=== PATIENT | female | born 1990 ===

== ENCOUNTER 2017-03-14 11:02 | Emergency (ER) | payer MEDICAID ==
[2017-03-14 11:43] VITALS: BMI 25.7
[2017-03-14 11:47] VITALS: RESP 18; TEMP 98.2; O2SAT 99
--- NOTE | 2017-03-14 12:42 | ED PDOC ---
Addendum entered and electronically signed by Maricruz Patterson DO 03/14/17 15:13: Review Of Systems Except As Marked, All Systems Reviewed And Found Negative. Constitutional: Positive for: Other (patient denies fever, chills, sweats) Eyes: Positive for: Other (patient denies eye pain, vision changes, redness of the eyes) ENT: Positive for: Other (patient denies sore throat, ear pain, difficulty hearing) Cardiovascular: Positive for: Other (patient denies chest pain, palpiations, orthopnea) Respiratory: Positive for: Other (patient denies difficulty breathing, SOB with exacerbation, wheezing, cough) Gastrointestinal: Positive for: Nausea, Abdominal Pain, Other (denies hematochezia, diarrhea) Genitourinary: Positive for: Vaginal Discharge (brown), Pelvic Pain (suprapubic and pelvic pain), Other (patient denies dysuria) Musculoskeletal: Positive for: Other (patient denies any msk pain) Skin: Positive for: Other (patient denies rashes, lesions, jaundice) Physical Exam - Physical Exam Appears: Non-toxic, No Acute Distress Skin: Normal Color, Warm, Dry Head: Atraumatic, Normacephalic Eye(s): bilateral: Normal Inspection, PERRL, EOMI Nose: Normal Oral Mucosa: Moist Tongue: Normal Appearing Lips: Normal Appearing Throat: Normal, Other (denies erythema) Neck: Normal, Normal ROM Gastrointestinal/Abdominal: Bowel Sounds, Soft, Tenderness (midepigastric and suprapubic), Guarding (suprapubic) Pelvic: Other (declined pelvic exam at this time. will follow up with vice president of manufacturing) Extremity: Normal ROM, Other (no swelling, pedal edema) Pulses: Left Carotid: Normal, Right Carotid: Normal, Left Femoral: Normal, Right Femoral: Normal, Left Dorsalis Pedis: Normal, Right Dorsalis Pedis: Normal Neurological/Psych: Oriented x3, Normal Speech, Normal Cognition, Normal Motor, Normal Sensation, Normal Reflexes Extremity: Upper: No Drift, Lower: No Drift Original Note: Arrival/HPI - General Historian: Patient - General Chief Complaint: Female Genitourinary Time Seen by Provider: 03/14/17 11:19 - History of Present Illness Narrative History of Present Illness (Text): 03/14/17 12:27 26 F presents with Right sided pelvic pain and suprapubic pain for the past day. Patient has been feeling nauseas for 10 days. Patient states at times she feels that food gets stuck and doesn't digest well. Patient states she has bowel movements every day. Patient states her right pelvic and suprapubic pain started today and has noticed brown discharge in her pad and in the toilet bowl after urination. Patient was taking depo shots until her LMP February 24, 2017. Patient switched to regular OCPs three days later. Patient admitted to unprotected sex with a monogamous partner for about five months. Patient states her OBGYN told her to come to the ER to get a serum HCG test. PMH: vaginal delivery 2012, no other past medical history PSH: "Tummy tuck" after to her son (surgery 2013) Allergies: Penicillin 03/14/17 13:56 03/14/17 13:56 03/14/17 14:39 (Maricruz Patterson) Past Medical History - Infectious Disease Hx of Infectious Diseases: None - Psychiatric Hx Substance Use: No - Anesthesia Hx Anesthesia: No Family/Social History - Physician Review Nursing Documentation Reviewed: Yes Family/Social History: Unknown Family HX Smoking Status: Never Smoked Hx Alcohol Use: No Hx Substance Use: No Allergies/Home Meds Allergies/Adverse Reactions: Allergies Penicillins Allergy (Verified 03/14/17 11:43) RASH Vital Signs Temp Pulse Resp BP Pulse Ox 03/14/17 14:20 79 18 106/69 99 03/14/17 13:37 84 18 110/71 99 03/14/17 11:47 98.2 F 90 18 108/75 99 Medical Decision Making - Lab Interpretations I have reviewed the lab results: Yes Interpretation: Abnormal lab values (UA positive for UTI) - RAD Interpretation Numerical Control Tool Programmer: Radiologist ED Course and Treatment: 03/14/17 14:37 Urinalysis, Culture CBC CMP, Mag, Phos transvaginal US (Maricruz Patterson) 03/14/17 15:25 eduard zhou examined pt as well and minimal epigastric and suprapubic discomfort. no other tenderness noted. pt notified of lab urine findings. pt notified on us findings and will fu with principal data architect to ensure no complications/ cancer development. 03/14/17 15:27 (Armani Zhou) - Lab Interpretations Narrative Lab Interpretation (Text): 03/14/17 14:38 2.6 cm simple cyst in left ovary. normal appearance of uterus and endometrium. small amount of free fluid in pelvis, physiologic (Eng,Maricruz) Lab Results: 03/14/17 13:00 03/14/17 13:00 Lab Results 03/14/17 13:00: Urine Color Yellow, Urine Appearance Turbid, Urine pH 7.0, Ur Specific [place] 1.015, Urine Protein 30 H, Urine Glucose (UA) Negative, Urine Ketones Negative, Urine Blood Large H, Urine Nitrate Positive H, Urine Bilirubin Negative, Urine Urobilinogen 0.2, Ur Leukocyte Esterase Small H, Urine RBC 25 - 30, Urine WBC 1 - 3, Ur Epithelial Cells 4 - 5, Urine Bacteria Many 03/14/17 13:00: Sodium 134, Potassium 4.1, Chloride 104, Carbon Dioxide 23, Anion Gap 11, BUN 8, Creatinine 0.6 L, Est GFR ( Amer) > 60, Est GFR (Non -Af Amer) > 60, Random Glucose 88, Calcium 9.3, Phosphorus 3.0, Magnesium 1.9, Total Bilirubin 0.3, AST 26, ALT 25, Alkaline Phosphatase 110, Total Protein 7.5 , Albumin 3.9, Globulin 3.5, Albumin/Globulin Ratio 1.1 03/14/17 13:00: WBC 6.7, RBC 4.27, Hgb 11.8 L, Hct 35.3 L, MCV 82.7, MCH 27.6, MCHC 33.4, RDW 13.6, Plt Count 279, MPV 11.7 H, Gran % 63.1, Lymph % (Auto) 28.4 , [place] % (Auto) 7.0 H, Eos % (Auto) 1.2 L, Baso % (Auto) 0.3, Gran # 4.21, Lymph # 1.9, [place] # 0.5, Eos # 0.1, Baso # 0.02 - RAD Interpretation Radiology Orders: 03/14/17 12:21 TRANSVAGINAL [US] Urgent - Medication Orders Current Medication Orders: Discontinued Medications Ibuprofen (Motrin Tab) 800 mg PO STAT STA Stop: 03/14/17 12:21 Last Admin: 03/14/17 12:52 Dose: 800 mg Ondansetron HCl (Zofran Odt) 8 mg PO STAT STA Stop: 03/14/17 12:21 Last Admin: 03/14/17 12:53 Dose: Disposition/Present on Arrival - Present on Arrival Any Indicators Present on Arrival: No History of DVT/PE: No History of Uncontrolled Diabetes: No Urinary Catheter: No History of Decub. Ulcer: No History Surgical Site Infection Following: None - Disposition Have Diagnosis and Disposition been Completed?: Yes Disposition Time: 15:00 Patient Plan: Discharge - Disposition Diagnosis: UTI (urinary tract infection) Disposition: HOME/ ROUTINE Patient Problems: Current Active Problems Problem Status Onset UTI (urinary tract infection) Acute Condition: FAIR Print Language: NORWEGIAN Additional Instructions: follow up with primary care doctor for re-evaluation of discharge, abdominal pain, difficulty with eating. Return to ED if fever, chills, extreme abdominal pain, nausea, vomiting, diarrhea Prescriptions: Nitrofurantoin Macrocrystals [Macrobid] 100 mg PO BID #20 cap Ondansetron [Zofran Odt] 8 mg PO Q6H PRN #20 tab.rapdis PRN Reason: Nausea/Vomiting Phenazopyridine [Phenazopyridine HCl] 100 mg PO TID #6 tab Referrals: Justo Chaudhary MD [Primary Care Provider] - Follow up with primary Forms: [employer] (Macedonian)
[2017-03-14 13:11] LABS: BASO # 0.02 K/mm3 (0.0-2.0); BASO % 0.3 % (0.0-3.0); EOS # 0.1 (0.0-0.7); EOS % 1.2 % (1.5-5.0); GRAN # 4.21 (1.4-6.5); GRAN % 63.1 % (50.0-68.0); HEMOGLOBIN 11.8 g/dL (12.0-16.0); LYMPH # 1.9 (1.2-3.4); LYMPH % 28.4 % (22.0-35.0); MEAN CELL VOLUME 82.7 fl (80.0-105.0); MEAN CORPUSCULAR HEMOGLOBIN 27.6 pg (25.0-35.0); MEAN CORPUSCULAR HGB CONC 33.4 g/dl (31.0-37.0); MEAN PLATELET VOLUME 11.7 fl (7.0-11.0); MONO # 0.5 (0.1-0.6); RBC 4.27 10^6/uL (3.5-6.1); RED CELL DISTRIBUTION WIDTH 13.6 % (11.5-14.5); WHITE BLOOD COUNT 6.7 10^3/ul (4.5-11.0)
[2017-03-14 13:23] LABS: URINE BILIRUBIN NEGATIVE (NEGATIVE); URINE BLOOD LARGE (NEGATIVE); URINE GLUCOSE (UA) NEGATIVE (NEGATIVE); URINE LEUKOCYTE ESTERASE SMALL Leu/uL (NEGATIVE); URINE NITRATE POSITIVE (NEGATIVE); URINE PROTEIN 30 mg/dL (<30 mg/dL); URINE UROBILINOGEN 0.2 E.U./dL (<1 E.U./dL)
[2017-03-14 13:27] LABS: URINE APPEARANCE TURBID (CLEAR); URINE COLOR YELLOW (YELLOW)
[2017-03-14 13:34] LABS: URINE RBC 25 - 30 /hpf (0-2)
[2017-03-14 13:35] LABS: URINE BACTERIA MANY (NEG)
[2017-03-14 13:44] LABS: ALB/GLOB RATIO 1.1 (1.1-1.8); ALBUMIN 3.9 g/dL (3.0-4.8); ALT/SGPT 25 U/L (7-56); AST/SGOT 26 U/L (14-36); BLOOD UREA NITROGEN 8 mg/dL (7-21); CALCIUM 9.3 mg/dL (8.4-10.5); GFR AFRICAN-AMERICAN > 60; GFR NON-AFRICAN AMERICAN > 60; MAGNESIUM 1.9 mg/dL (1.7-2.2)
--- NOTE | 2017-03-14 14:16 | US ---
HISTORY: RLQ pain, history of ovarian cyst COMPARISON: None available. TECHNIQUE: Transvaginal pelvic ultrasound was performed. FINDINGS: UTERUS: Measures 8.1 x 4.4 x 5.4 cm. Retroverted, normal in size and appearance. No fibroid or other mass lesion seen. ENDOMETRIUM: Measures 4.2 mm in diameter. Within normal limits. CERVIX: No cervical abnormality identified. RIGHT OVARY: Measures 3.6 x 2.0 x 3.5 cm. No solid mass. Normal flow. LEFT OVARY: Measures 3.5 x 2.7 x 4.0 cm. No solid mass. Normal flow. There is a 2.6 x 1.9 x 2.5 cm simple cyst. FREE FLUID: There is small amount of free fluid in the pelvis, likely physiologic. OTHER FINDINGS: None. IMPRESSION: 2.6 cm simple cyst in the left ovary. Normal appearance of the uterus and endometrium. Small amount of free fluid in the pelvis, likely physiologic.
[2017-03-14 14:21] VITALS: BP 106/69; PULSE 79
== END 2017-03-14 15:25 | disposition home or self-care (01) ==
LOC: ED 11:02
DX: N39.0 Urinary tract infection, site not specified (principal)

== ENCOUNTER 2017-03-16 12:48 | Emergency (ER) | payer MEDICAID ==
[2017-03-16 12:48] VITALS: BMI 25.7
[2017-03-16 13:13] VITALS: TEMP 98.2; O2SAT 98
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
--- NOTE | 2017-03-16 14:19 | RAD ---
PROCEDURE: Left hand radiographs Left wrist radiographs HISTORY: hand injury COMPARISON: None available. FINDINGS: BONES: Tachycardia nails material obscures evaluation of the 1st, 2nd, and 4th distal digits. No acute displaced fracture. JOINTS: No dislocation. SOFT TISSUES: Unremarkable. No evidence of radiopaque foreign body. OTHER FINDINGS: None. IMPRESSION: No acute displaced fracture, dislocation, or significant joint effusion identified. If symptoms persist, or if there is continued clinical concern, x-ray follow-up in 7-10 days should be considered.
[2017-03-16 14:50] VITALS: BP 110/80; PULSE 89; RESP 17
== END 2017-03-16 14:50 | disposition home or self-care (01) ==
LOC: ED 12:48
DX: S69.92XA Unspecified injury of left wrist, hand and finger(s), initial encounter (principal); Y04.0XXA Assault by unarmed brawl or fight, initial encounter; Y92.009 Unspecified place in unspecified non-institutional (private) residence as the place of occurrence of the external cause
CPT/HCPCS: 29130; 73110; 73130; 96372; 99284; J1885

== ENCOUNTER 2017-04-02 19:58 | Emergency (ER) | payer MEDICAID ==
[2017-04-02 19:58] VITALS: BMI 25.7
--- NOTE | 2017-04-02 20:08 | ED PDOC ---
Arrival/HPI - General Time Seen by Provider: 04/02/17 20:08 Historian: Patient - History of Present Illness Narrative History of Present Illness (Text): 04/02/17 20:08 26 y/o female, pmh including UTI and chronic headache, allergic to penicillin, c /o rt. sided headache x 2 days. Pt. stated that she has chronic rt. sided headache which started about 2 days ago, sharp and throbbing, no change in vision, no neck stiffness, no change in gait, no palpitation, no rash, no other medical or psychological complaints. Past Medical History - Provider Review Nursing Documentation Reviewed: Yes - Infectious Disease Hx of Infectious Diseases: None - Cardiac Hx Cardiac Disorders: No - Pulmonary Hx Respiratory Disorders: No - Neurological Hx Neurological Disorder: No - HEENT Hx HEENT Disorder: No - Renal Hx Renal Disorder: No - Endocrine/Metabolic Hx Endocrine Disorders: No - Hematological/Oncological Hx Blood Disorders: No - Integumentary Hx Dermatological Disorder: No - Musculoskeletal/Rheumatological Hx Musculoskeletal Disorders: No - Gastrointestinal Hx Gastrointestinal Disorders: No - Genitourinary/Gynecological Hx Genitourinary Disorders: Yes Hx Urinary Tract Infection: Yes - Psychiatric Hx Psychophysiologic Disorder: No Hx Substance Use: No - Anesthesia Hx Anesthesia: No Family/Social History - Physician Review Nursing Documentation Reviewed: Yes Family/Social History: Unknown Family HX Smoking Status: Never Smoked Hx Alcohol Use: No Hx Substance Use: No Allergies/Home Meds Allergies/Adverse Reactions: Allergies Penicillins Allergy (Verified 03/16/17 12:50) RASH Review of Systems - Review of Systems Constitutional: absent: Fatigue, Fevers Eyes: absent: Vision Changes ENT: absent: Hearing Changes Respiratory: absent: SOB, Cough Cardiovascular: absent: Chest Pain Gastrointestinal: absent: Abdominal Pain, Diarrhea, Nausea, Vomiting Musculoskeletal: absent: Arthralgias, Myalgias Skin: absent: Rash, Pruritis Neurological: Headache. absent: Dizziness Hemo/Lymphatic: absent: Adenopathy Psychiatric: absent: Anxiety, Depression Physical Exam Vital Signs Reviewed: Yes Vital Signs Temp Pulse Resp BP Pulse Ox 04/02/17 20:05 98.8 F 91 H 18 101/68 99 Temperature: Afebrile Blood Pressure: Normal Pulse: Regular Respiratory Rate: Normal Appearance: Positive for: Well-Appearing, Non-Toxic Pain Distress: Moderate Mental Status: Positive for: Alert and Oriented X 3 - Systems Exam Head: Present: Atraumatic, Normocephalic, Other (no temporal artery tenderness, no jaw claudication. ). No: Tenderness, Contusion, Swelling, Ecchymosis, Abrasion, Laceration Pupils: Present: PERRL Extroacular Muscles: Present: EOMI Conjunctiva: Present: Normal Ears: Present: NORMAL TM, Normal Canal. No: Erythema Mouth: Present: Moist Mucous Membranes Pharnyx: Present: Normal. No: ERYTHEMA, EXUDATE, TONSILS ENLARGED Nose (External): Present: Atraumatic. No: Abrasion, Contusion Nose (Internal): Present: Normal Inspection, No Active Bleeding. No: Rhinorrhea , Septal Hematoma, Epistaxis Neck: Present: Normal Range of Motion, Trachea Midline. No: Meningeal Signs, MIDLINE TENDERNESS, Paraspinal Tenderness, Lymphadenopathy Respiratory/Chest: Present: Clear to Auscultation, Good Air Exchange. No: Respiratory Distress, Accessory Muscle Use Cardiovascular: Present: Regular Rate and Rhythm, Normal S1, S2. No: Murmurs Abdomen: Present: Normal Bowel Sounds. No: Tenderness, Distention, Peritoneal Signs, Rebound, Guarding Back: Present: Normal Inspection. No: CVA Tenderness Upper Extremity: Present: Normal Inspection. No: Cyanosis, Edema Lower Extremity: Present: Normal Inspection. No: Edema Neurological: Present: GCS=15, CN II-XII Intact, Speech Normal, Motor Func Grossly Intact, Gait Normal, Memory Normal Skin: Present: Warm, Dry, Normal Color. No: Rashes Psychiatric: Present: Alert, Oriented x 3, Normal Insight, Normal Concentration Medical Decision Making ED Course and Treatment: 04/02/17 20:53 -labs/rapid flu -CT head -IVF/reglan/benadryl -Observe and reassess 04/02/17 23:16 -Urine hcg is negative -Rapid flu is negative -Labs are non-significant -CT head show no acute findings -Pt. feels completely relief and headache resolved, request to be discharged home. -Discharge home with naproxen, bedrest, follow up with your own pmd and neurologist within 2 days, return to the ER for any new or worsening signs or symptoms. - Lab Interpretations Lab Results: 04/02/17 21:31 04/02/17 21:31 Lab Results 04/02/17 21:31: Influenza Typ A,B (EIA) Negative for flu a/b 04/02/17 21:31: WBC 8.7 D, RBC 4.64, Hgb 13.0, Hct 38.3, MCV 82.5, MCH 28.0, MCHC 33.9, RDW 13.7, Plt Count 326, MPV 12.0 H, Gran % 56.8, Lymph % (Auto) 35.3 H, [place] % (Auto) 6.8 H, Eos % (Auto) 0.8 L, Baso % (Auto) 0.3, Gran # 4.93 , Lymph # (Auto) 3.1, [place] # (Auto) 0.6, Eos # (Auto) 0.1, Baso # (Auto) 0.03 04/02/17 21:31: Sodium 144, Potassium 4.1, Chloride 107, Carbon Dioxide 25, Anion Gap 16, BUN 10, Creatinine 0.7, Est GFR ( Amer) > 60, Est GFR (Non- Af Amer) > 60, Random Glucose 88, Calcium 9.8, Magnesium 2.1, Total Bilirubin 0.4, AST 25, ALT 23, Alkaline Phosphatase 134 H D, Total Protein 8.2, Albumin 4.3, Globulin 3.9, Albumin/Globulin Ratio 1.1 - RAD Interpretation Radiology Orders: 04/02/17 20:49 HEAD W/O CONTRAST [CT] Stat FINDINGS: Brain: Unremarkable. No hemorrhage. No significant white matter disease. No edema. Normal perry white matter interfaces are present. Ventricles: Unremarkable. No ventriculomegaly. Bones/joints: Unremarkable. No acute fracture. Soft tissues: Unremarkable. Sinuses: Unremarkable as visualized. No acute sinusitis. Mastoid air cells: Unremarkable as visualized. No mastoid effusion. IMPRESSION: Normal head/brain CT. Thank you for allowing us to participate in the care of your patient. Dictated and Authenticated by: Franky Vaughn MD 04/02/2017 11:12 PM Eastern Time ([place] & [place]) Drawing In Machine Tender Helper: Radiologist - Medication Orders Current Medication Orders: Discontinued Medications Diphenhydramine HCl (Benadryl) 50 mg IVP STAT STA Stop: 04/02/17 20:49 Last Admin: 04/02/17 21:15 Dose: 50 mg IVP Administration Document 02/07/18 21:15 JOL (Rec: 04/02/17 21:23 JOL [id number]) Charges for Administration # of IVP Administrations 1 Sodium Chloride (Sodium Chloride 0.9%) 1,000 mls @ 999 mls/hr IV .Q1H1M STA Stop: 04/02/17 21:48 Last Admin: 04/02/17 21:15 Dose: 999 mls/hr eMAR Start Stop Document 04/02/17 21:15 JOL (Rec: 04/02/17 21:25 JOL [id number]) Intravenous Solution Start Date 04/02/17 Start Time 21:15 End Date 04/02/17 End time 22:15 Total Infusion Time 60 Metoclopramide HCl (Reglan) 10 mg IVP STAT STA Stop: 04/02/17 20:49 Last Admin: 04/02/17 21:15 Dose: 10 mg IVP Administration Document 04/02/17 21:15 JOL (Rec: 04/02/17 21:24 JOL [id number]) Charges for Administration # of IVP Administrations 1 - PA / MECHANIC / Resident Statement / has reviewed & agrees with the documentation as recorded. Disposition/Present on Arrival - Present on Arrival Any Indicators Present on Arrival: No History of DVT/PE: No History of Uncontrolled Diabetes: No Urinary Catheter: No History of Decub. Ulcer: No History Surgical Site Infection Following: None - Disposition Have Diagnosis and Disposition been Completed?: Yes Diagnosis: Headache Disposition: HOME/ ROUTINE Disposition Time: 22:40 Patient Plan: Discharge Patient Problems: Current Active Problems Problem Status Onset Headache Acute Condition: IMPROVED Additional Instructions: -Discharge home with naproxen, bedrest, follow up with your own pmd and neurologist within 2 days, return to the ER for any new or worsening signs or symptoms. Prescriptions: Naproxen 500 mg PO BID PRN #20 tab PRN Reason: Other Referrals: PCP,NO [Primary Care Provider] - Follow up with primary Stone Kaur MD [Staff Provider] - Follow up with primary Forms: WORK NOTE
[2017-04-02 20:09] VITALS: RESP 18; TEMP 98.8
[2017-04-02] MEDS ORDERED: Sodium Chloride 0.9% 1,000 ML IV STA (20:48)
[2017-04-02] MEDS ORDERED: DiphenhydrAMINE 50 mg/ml Inj IVP STA (20:48)
[2017-04-02 21:38] LABS: BASO # 0.03 K/mm3 (0.0-2.0); BASO % 0.3 % (0.0-3.0); EOS # 0.1 (0.0-0.7); EOS % 0.8 % (1.5-5.0); GRAN # 4.93 (1.4-6.5); GRAN % 56.8 % (50.0-68.0); LYMPH # 3.1 (1.2-3.4); LYMPH % 35.3 % (22.0-35.0); MEAN CELL VOLUME 82.5 fl (80.0-105.0); MEAN CORPUSCULAR HGB CONC 33.9 g/dl (31.0-37.0); MONO # 0.6 (0.1-0.6); MONO % 6.8 % (1.0-6.0); RBC 4.64 10^6/uL (3.5-6.1); RED CELL DISTRIBUTION WIDTH 13.7 % (11.5-14.5); WHITE BLOOD COUNT 8.7 10^3/ul (4.5-11.0)
[2017-04-02 22:26] LABS: ALB/GLOB RATIO 1.1 (1.1-1.8); ALBUMIN 4.3 g/dL (3.0-4.8); ALT/SGPT 23 U/L (7-56); AST/SGOT 25 U/L (14-36); BLOOD UREA NITROGEN 10 mg/dL (7-21); CALCIUM 9.8 mg/dL (8.4-10.5); GFR AFRICAN-AMERICAN > 60; GFR NON-AFRICAN AMERICAN > 60; MAGNESIUM 2.1 mg/dL (1.7-2.2)
[2017-04-02 23:59] VITALS: O2SAT 100
[2017-04-03 00:04] VITALS: BP 110/67; PULSE 82
--- NOTE | 2017-04-03 08:07 | CT ---
PROCEDURE: CT HEAD WITHOUT CONTRAST. HISTORY: chronic rt. sided headache COMPARISON: None available. TECHNIQUE: Axial computed tomography images were obtained through the head/brain without intravenous contrast. Radiation dose: Total exam DLP = 812 mGy-cm. This CT exam was performed using one or more of the following dose reduction techniques: Automated exposure control, adjustment of the mA and/or kV according to patient size, and/or use of iterative reconstruction technique. FINDINGS: HEMORRHAGE: No intracranial hemorrhage. BRAIN: No mass effect or edema. No atrophy or chronic microvascular ischemic changes. VENTRICLES: Unremarkable. No hydrocephalus. CALVARIUM: Unremarkable. PARANASAL SINUSES: Unremarkable as visualized. No significant inflammatory changes. MASTOID AIR CELLS: Unremarkable as visualized. No inflammatory changes. OTHER FINDINGS: The report concurs with the preliminary [facility] report IMPRESSION: Normal CT of the Head.
== END 2017-04-02 23:50 | disposition home or self-care (01) ==
LOC: ED 19:58
DX: R51 Headache (principal)
CPT/HCPCS: 70450; 80053; 83735; 85025; 87804; 96361; 96374; 96375; 99285; J1200; J2765; J7040

== ENCOUNTER 2017-09-19 18:37 | Emergency (ER) | payer MEDICAID ==
[2017-09-19 18:59] VITALS: BMI 25.3
--- NOTE | 2017-09-19 19:27 | ED PDOC ---
Arrival/HPI - General Chief Complaint: Abnormal Labs Time Seen by Provider: 09/19/17 19:24 - History of Present Illness Narrative History of Present Illness (Text): 26 y/o F p/w L arm pain, swelling, erythema, and temperature of 101 at home last night s/p removing a contraceptive implant from the area 3 days ago. She denies motor weakness or numbness. She also notes that she recently has had general weakness, leg swelling and therefore went to her PMD and had blood work one which showed Alk Phos 158 and was given a prescription for an abdominal US. Denies chills, chest pain, dyspnea, nausea, vomiting, diarrhea, dysuria. Past Medical History - Infectious Disease Hx of Infectious Diseases: None - Cardiac Hx Cardiac Disorders: No - Pulmonary Hx Respiratory Disorders: Yes Hx Asthma: Yes - Neurological Hx Neurological Disorder: No - HEENT Hx HEENT Disorder: No - Renal Hx Renal Disorder: No - Endocrine/Metabolic Hx Endocrine Disorders: No - Hematological/Oncological Hx Blood Disorders: No - Integumentary Hx Dermatological Disorder: No - Musculoskeletal/Rheumatological Hx Musculoskeletal Disorders: No - Gastrointestinal Hx Gastrointestinal Disorders: No - Genitourinary/Gynecological Hx Genitourinary Disorders: Yes Hx Urinary Tract Infection: Yes - Psychiatric Hx Psychophysiologic Disorder: No Hx Substance Use: No - Anesthesia Hx Anesthesia: No Family/Social History Family/Social History: No Known Family HX Smoking Status: Never Smoked Hx Alcohol Use: No Hx Substance Use: No Allergies/Home Meds Allergies/Adverse Reactions: Allergies Penicillins Allergy (Verified 09/19/17 19:00) RASH Review of Systems - Physician Review All systems were reviewed & negative as marked: Yes - Review of Systems Respiratory: absent: SOB Cardiovascular: absent: Chest Pain Physical Exam - Physical Exam Narrative Physical Exam (Text): Constitutional: No acute distress. Head: Normocephalic. Atraumatic. Eyes: PERRL. ENT: Moist mucous membranes. Neck: Supple. Cardiovascular: Regular rate. Chest: No tenderness. Respiratory: Clear to auscultation bilaterally. GI: Soft. Nontender. Nondistended. Back: No CVA tenderness. Musculoskeletal: L upper arm with small incision without active drainage with surrounding induration, erthema, and tenderness. Skin: No rash. Neurologic: Alert, no focal deficit. Vital Signs Temp Pulse Resp BP Pulse Ox 09/19/17 19:00 98.8 F 98 H 16 113/76 97 Medical Decision Making ED Course and Treatment: Dr. Moore paged at 7:25pm. She recommends US abdomen and US doppler to rule out DVT. Agrees with doxycycline 1 dose IV here and discharge on same orally. States blood work not needed at this time since it was done this past week in office. US FINDINGS: Liver: Hepatic steatosis. No intrahepatic bile duct dilation. Gallbladder: Unremarkable. No gallstones. Common bile duct: Common bile measures up to 3 mm. No stones. No dilation. Pancreas: Unremarkable as visualized. Kidneys: Unremarkable. No stones. No solid mass. No hydronephrosis. Spleen: Unremarkable. No splenomegaly. Aorta: See below. Inferior vena cava: IVC and aorta not visualized. IMPRESSION: Hepatic steatosis. No evidence of cholelithiasis or gallbladder wall thickening. 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 - RAD Interpretation Radiology Orders: 09/19/17 19:28 ABDOMEN COMPLETE [US] Stat 09/19/17 19:33 DUPLEX UPPER EXTRM VEIN LEFT [US] Stat - Medication Orders Current Medication Orders: Discontinued Medications Doxycycline Hyclate 100 mg/ (Sodium Chloride) 100 mls @ 100 mls/hr IVPB STAT STA PRN Reason: Protocol Stop: 09/19/17 20:32 Disposition/Present on Arrival - Present on Arrival Any Indicators Present on Arrival: No History of DVT/PE: No History of Uncontrolled Diabetes: No Urinary Catheter: No History of Decub. Ulcer: No History Surgical Site Infection Following: None - Disposition Have Diagnosis and Disposition been Completed?: Yes Diagnosis: Cellulitis Disposition: HOME/ ROUTINE Disposition Time: 21:10 Patient Plan: Discharge Condition: STABLE Discharge Instructions (ExitCare): Cellulitis (ED) Additional Instructions: US FINDINGS: Liver: Hepatic steatosis. No intrahepatic bile duct dilation. Gallbladder: Unremarkable. No gallstones. Common bile duct: Common bile measures up to 3 mm. No stones. No dilation. Pancreas: Unremarkable as visualized. Kidneys: Unremarkable. No stones. No solid mass. No hydronephrosis. Spleen: Unremarkable. No splenomegaly. Aorta: See below. Inferior vena cava: IVC and aorta not visualized. IMPRESSION: Hepatic steatosis. No evidence of cholelithiasis or gallbladder wall thickening. Doppler negative for arm blood clot. Prescriptions: Doxycycline Monohydrate 100 mg PO BID #19 capsule Referrals: Iqra Moore MD [Staff Provider] - Follow up with primary Forms: [employer] (British)
[2017-09-19 22:08] VITALS: RESP 18; TEMP 98.5; O2SAT 99
[2017-09-19 22:29] VITALS: BP 118/70; PULSE 89
--- NOTE | 2017-09-20 09:15 | US ---
Date of service: 09/19/2017 HISTORY: Generalized weakness, leg swelling and elevated alkaline phosphatase COMPARISON: None. TECHNIQUE: Sonographic evaluation of the abdomen. FINDINGS: LIVER: Measures 13.1 cm. Hepatopedal blood flow. Fatty infiltration manifest ultrasonographically as increased echogenicity of the liver parenchyma. No mass. No intrahepatic bile duct dilatation. GALLBLADDER: Unremarkable. No gallstones. COMMON BILE DUCT: Measures 3.1 mm. No stones. No dilatation. PANCREAS: Unremarkable as visualized. No mass. No ductal dilatation. RIGHT KIDNEY: Measures 5.2 x 10.9cm. Normal echogenicity. No calculus, mass, or hydronephrosis. LEFT KIDNEY: Measures 5.2 x 9.8cm. Normal echogenicity. No calculus, mass, or hydronephrosis. SPLEEN: Normal in size and contour. No mass. AORTA: No aneurysmal dilatation. IVC: Unremarkable. OTHER FINDINGS: None. IMPRESSION: Hepatic steatosis without focal abnormality. Otherwise unremarkable study. Concordant results (preliminary interpretation) provided by [facility]. Procedure Completed: 20:16 Preliminary ([facility]) Report: Dictated and Authenticated: 21:02 Final Interpretation: 09:12 September 20, 2017.
--- NOTE | 2017-09-20 22:26 | US ---
PROCEDURE: Left upper extremity venous ultrasound HISTORY: Arm pain and swelling. Evaluate for deep venous thrombosis. PHYSICIAN(S): Eleno Trevino MD. FINDINGS: The visualized leftinternal jugular vein is sonographically normal and compressible. No evidence of obstruction or thrombus is seen. The visualized segments of the left subclavian vein are patent with normal waveforms. No sonographic evidence of obstruction or thrombosis is seen. The visualized deep venous system of the proximal leftupper extremity is sonographically normal and compressible. IMPRESSION: 1. No sonographic evidence for deep venous thrombosis in the visualized segments of the left upper extremity.
== END 2017-09-19 22:24 | disposition home or self-care (01) ==
LOC: ED 18:37
DX: L03.114 Cellulitis of left upper limb (principal)